=== PATIENT | male | born 1970 | race Two or more races ===

== ENCOUNTER 2018-04-13 23:45 | Inpatient (IN) | payer MEDICARE, MEDICAID ==
[~2018-04-13] VITALS: Ht 190.5 cm; Wt 94.4 kg
[2018-04-14] VITALS (76 sets, daily range): BP systolic 127–203; BP diastolic 66–112
--- NOTE | 2018-04-14 00:45 | NUR ---
ROUTE SALES SPECIALIST NOTES ADMITTED PATIENT TRANSFERED FROM [facility] WHO PRESENTED TO [facility] FROM HOME WITH COMPLAIN OF NAUSEA/VOMITING.HAS HX OF ESRD ON HEMODIALYSIS (M,W,F)WITH RIGHT AV FISTULA. TROPONIN=0.05.K=3.9. WAS GIVEN MORPHINE 4 MG. X 3 DOSES AT [facility] FOR PAIN,ZOFRAN AND REGLAN IVP. ALSO HAD INITIAL ELEVATED BP OF 230/121. PATIENT AWAKE,ALERT,NOT IN ANY DISTRESS BUT STILL WITH MILD TO MODERATE PAIN (ABDOMINAL DISCOMFORT) DENIES ANY CHEST PAIN.COMFORT CARE DONE,NEEDS ATTENDED.FOR HEMODIALYSIS IN AM.
[2018-04-14] MEDS ORDERED: ACETAMINOPHEN 325 MG TABLET PO PRN (01:30)
[2018-04-14] MEDS ORDERED: HYDROCODONE/APAP 5/325MG 1 EACH TABLET PO PRN (01:30)
[2018-04-14] MEDS ORDERED: HYDROMORPHONE INJ 2 MG/ML DISP.SYRIN IV PRN (01:30)
[2018-04-14] MEDS ORDERED: *INSULIN REGULAR(HUMULIN R)HUM 100 UNIT/ML VIAL SQ PRN (01:30)
[2018-04-14] MEDS ORDERED: MAGNESIUM HYDROXIDE 30 ML UDC PO PRN (01:30)
[2018-04-14] MEDS ORDERED: DEXTROSE 50%-WATER 50 ML DISP.SYRIN IV PRN (01:30)
[2018-04-14] MEDS ORDERED: ZOLPIDEM TARTRATE 5 MG TABLET PO PRN (01:30)
[2018-04-14] MEDS ORDERED: NITROGLYCERIN 0.4 MG/TAB BOTTLE SL PRN (01:30)
[2018-04-14] MEDS ORDERED: MAG HYDROX/AL HYDROX/SIMETH 30 ML UDC PO PRN (01:30)
[2018-04-14] MEDS ORDERED: INSULIN REGULAR, HUMAN 100 UNIT/ML 3 ML VIAL SQ PRN (01:30)
[2018-04-14] MEDS ORDERED: hydrALAZINE HCL IV 20 MG VIAL IV PRN (01:30)
[2018-04-14] MEDS ORDERED: ONDANSETRON HCL/PF 4 MG/2 ML VIAL IVP PRN (01:30)
[2018-04-14] MEDS: METOCLOPRAMIDE HCL 10 MG/2 ML VIAL IV SCH ×4 (01:49→19:42)
[2018-04-14 04:46] LABS: BASOPHILS # (AUTO) 0.1 /CMM (0.0-0.2); BASOPHILS % (AUTO) 1.2 % (0.0-2.0); EOSINOPHILS % (AUTO) 2.2 % (0.0-6.0); HEMATOCRIT 29 % (39-51); HEMOGLOBIN 9.7 g/dL (13.5-17.5); LYMPHOCYTES % (AUTO) 28.1 % (20.0-44.0); MEAN CORPUSCULAR HGB CONC 34 g/dl (31.0-36.0); MEAN CORPUSCULAR VOLUME 95 fL (80-96); MONOCYTES % (AUTO) 13.7 % (2.0-12.0); NEUTROPHILS # (AUTO) 3.9 /CMM (1.8-8.9); NEUTROPHILS % (AUTO) 54.8 % (43.0-81.0); PLATELET COUNT (AUTO) 206 /CMM (150-450); RED BLOOD CELL COUNT(AUTO) 3.05 MIL/uL (4.5-6.0); WHITE BLOOD COUNT (AUTO) 7.1 K/uL (4.3-11.0)
[2018-04-14 04:59] LABS: ALBUMIN 2.9 g/dL (3.4-5.0); BILIRUBIN,TOTAL 0.5 mg/dL (0.2-1.0); CALCIUM, SERUM 8.4 mg/dL (8.5-10.1); MAGNESIUM 2.1 mg/dL (1.8-2.4); PHOSPHORUS 4.5 mg/dL (2.5-4.9); POTASSIUM 4.2 mmol/L (3.5-5.1); TOTAL PROTEIN, SERUM 6.9 g/dL (6.4-8.2)
--- NOTE | 2018-04-14 05:00 | NUR ---
CAREER AND TECHNOLOGY EDUCATION TEACHER NOTES BP 203/112, PT CALM,ASLEEP ,ASYMPTOMATIC.CALLED ,ORDERED TO GIVE ANOTHER HYDRALAZINE 10 MG IVP. 0530 EZ=330/97 POST GIVING HYDRALAZINE.
[2018-04-14 05:05] LABS: THYROID STIMULATING HORMONE 4.261 uIU/mL (0.358-3.74)
[2018-04-14] MEDS ORDERED: hydrALAZINE HCL IV 20 MG VIAL IV ONE (05:30)
[2018-04-14 05:50] LABS: CREATININE 7.5 mg/dL (0.6-1.3)
[2018-04-14] MEDS ORDERED: NTG 50 MG/D5W250 ML BOTTL 250 ML IV PRN ×2 (07:30→09:00)
[2018-04-14] MEDS ORDERED: MINO2.5T PO (07:36)
[2018-04-14] MEDS ORDERED: CLON0.1T PO (07:41)
[2018-04-14] MEDS ORDERED: CLOP75TA15 PO (07:41)
[2018-04-14] MEDS ORDERED: ATOR10TA PO (07:41)
[2018-04-14] MEDS ORDERED: SEVE800T8 PO (07:41)
[2018-04-14] MEDS ORDERED: ASPI-1169 PO ×2 (07:41→08:02)
[2018-04-14] MEDS ORDERED: METO-356 PO (07:41)
[2018-04-14] MEDS ORDERED: METO25TA6 PO (08:02)
[2018-04-14] MEDS ORDERED: LISI40TA4 PO (08:02)
[2018-04-14] MEDS ORDERED: NIFE90TA38 PO (08:02)
[2018-04-14] MEDS: ASPIRIN EC 81 MG TABLET.DR PO SCH (08:07)
[2018-04-14] MEDS: PANTOPRAZOLE 40 MG TABLET.DR PO SCH (08:07)
[2018-04-14] MEDS: hydrALAZINE HCL 50 MG TABLET PO SCH ×3 (08:10→17:41)
[2018-04-14] MEDS: BLOOD SUGAR DIAGNOSTIC 1 EACH STRIP VI SCH ×4 (08:22→21:43)
--- NOTE | 2018-04-14 08:23 | NUR ---
WOUND CARE CONSULT: PT REFUSED SKIN ASSESSMENT. WILL SEE PT PT CONDITION PERMITS.
[2018-04-14] MEDS: NICARDIPINE IN DEXTROSE,ISO-OS 200 ML IV PRN ×2 (10:22→21:39)
[2018-04-14] MEDS: METOPROLOL TARTRATE 50 MG TABLET PO SCH ×2 (12:08→17:41)
[2018-04-14] MEDS: SEVELAMER CARBONATE 800 MG TABLET PO SCH ×2 (12:34→17:41)
--- NOTE | 2018-04-14 12:42 | NUR ---
RN NOTE 0720: Received patient awake, sleepy. Verbalizing wanting to go to sleep. A/Ox4, does not want to be bothered, verbalized "I want to sleep.". PIV intact. left arm AV shunt + bruit thrill. 0810: S/E by Dr. Bhatt, with order to keep in ICU and ordered Nitro drip. Still SBP 180's. 0900: Started on Nitro drip. 0930: S/E by Dr. Connell, said to DC Nitro and change to Nicardipine, DC once Nicardipine started. mentioned patient will have HD today. 1240: S/E by José Miguel LEE, spoke with patient and made aware re: the POC. Continued home meds.
[2018-04-14 15:19] LABS: IRON, SERUM 18 ug/dl (50-175); TOTAL IRON BINDING CAPACITY 150 ug/dl (250-450)
[2018-04-14 15:32] LABS: FERRITIN 887 ng/mL (8-388)
[2018-04-14] MEDS ORDERED: ATORVASTATIN 10 MG TABLET PO SCH (18:00)
--- NOTE | 2018-04-14 18:39 | NUR ---
RN NOTE 1700: Done with HD but SBP went to >160 again, will restart Nicardipine and titrate as ordered. Patient is awake now, tried clear liquids and tolerated, wanting to get solid foods, ordered Renal soft diet, patient tolerated.
--- NOTE | 2018-04-14 19:30 | NUR ---
GUEST SERVICE AIDE: RECEIVED PT IN BED WT EYES CLOSED, ABLE TO WAKE UP WHEN CALLED BY NAME AND ORIENTED X 3. ON 2L O2 VIA NC WT NO ACUTE DISTRESS. NO C/O PAIN OR EVIDENCE OF DISCOMFORT. SR ON CUSTOMER ACQUISITION SPECIALIST. ON CARDENE DRIP AT 2MG/HR FOR HIGH BP. WILL TITRATE NEEDED. NO S/S OF IV INFILTRATION. AFEBRILE. LEFT AV SHUNT INTACT WT + BRUIT AND THRILL NOTED. HOB AT 35 DEGREES. SAFETY PRECAUTION NOTED. WILL CONTINUE TO MONITOR.
--- NOTE | 2018-04-14 20:19 | NUR ---
Met with patient,he lives at home with family.He is ambulatory and independent with adl's. Has ESRD,receives hemodialysis MWF @ 4:30pm at [facility] [phone]. Has good family support. Current dc plan is to return home once discharge. Addendum: 04/14/18 at 2024 by VITALIY MCKEON RN Amended: Links added.
[2018-04-15] VITALS (45 sets, daily range): BP systolic 129–174; BP diastolic 58–120
[2018-04-15] MEDS: METOPROLOL TARTRATE 50 MG TABLET PO SCH ×2 (00:33→06:44)
[2018-04-15] MEDS: METOCLOPRAMIDE HCL 10 MG/2 ML VIAL IV SCH ×3 (02:37→13:59)
[2018-04-15] MEDS: NICARDIPINE IN DEXTROSE,ISO-OS 200 ML IV PRN (03:43)
[2018-04-15 05:04] LABS: BASOPHILS # (AUTO) 0.1 /CMM (0.0-0.2); BASOPHILS % (AUTO) 1.2 % (0.0-2.0); EOSINOPHILS % (AUTO) 3.5 % (0.0-6.0); HEMATOCRIT 28 % (39-51); HEMOGLOBIN 9.5 g/dL (13.5-17.5); LYMPHOCYTES # (AUTO) 1.3 /CMM (0.8-4.8); LYMPHOCYTES % (AUTO) 24.6 % (20.0-44.0); MEAN CORPUSCULAR HGB CONC 34 g/dl (31.0-36.0); MEAN CORPUSCULAR VOLUME 96 fL (80-96); MONOCYTES # (AUTO) 0.7 /CMM (0.1-1.30); NEUTROPHILS # (AUTO) 2.9 /CMM (1.8-8.9); NEUTROPHILS % (AUTO) 56.7 % (43.0-81.0); PLATELET COUNT (AUTO) 208 /CMM (150-450); RED BLOOD CELL COUNT(AUTO) 2.96 MIL/uL (4.5-6.0); WHITE BLOOD COUNT (AUTO) 5.1 K/uL (4.3-11.0)
[2018-04-15 05:11] LABS: ALBUMIN 2.8 g/dL (3.4-5.0); BILIRUBIN,TOTAL 0.5 mg/dL (0.2-1.0); CALCIUM, SERUM 8.6 mg/dL (8.5-10.1); CREATININE 6.1 mg/dL (0.6-1.3); MAGNESIUM 2.1 mg/dL (1.8-2.4); POTASSIUM 3.9 mmol/L (3.5-5.1); TOTAL PROTEIN, SERUM 6.9 g/dL (6.4-8.2)
--- NOTE | 2018-04-15 06:50 | NUR ---
STEEL SPAR OPERATOR: REMAINED A/O X 3. STILL ON CARDENE DRIP AT 2.5MG/HR. ON ROOM AIR AND PT DESATURATES TO HIGH 80s WHEN ASLEEP. PT WAS AWAKENED AND 02 SAT GOES BACK TO 94% AND ABOVE. PT REFUSED TO BE PLACED ON 02 VIA NC. ALL NEEDS MET. WILL ENDORSE TO DAY SHIFT FOR CONTINUITY OF CARE.
--- NOTE | 2018-04-15 07:05 | NUR ---
STAMP CLERK: ENDORSED TO DAY SHIFT RN TO HOLD BREAKFAST UNTIL RENAL US IS DONE.
--- NOTE | 2018-04-15 07:31 | NUR ---
INITIAL MOLD MAINTENANCE TECHNICIAN NOTE RCVD PT AWAKE AND ALERT, SHOWING NO S/O DISTRESS PAIN AT THIS TIME. SR ON MONITOR. ON RA TOLERATING WELL WHEN AWAKE REFUSING TO USE O2 VIA NC STATING THAT HE CAN'T TOLERATED AND UNABLE TO GIVE SPECIFICS. PT WAS EDUCATED ON THE IMPORTANCE OF HAVING A GOOD LEVEL OF O2 IN HIS SYSTEM AND INFORMED THAT WHEN HE SLEEPS HIS O2 SATS GO DOWN TO MID-HIGH 80's. PT CONTINUES TO REFUSE. PT AWARE OF THE NEED TO COLLECT STOOL FOR OB AND WILL LET RN KNOW WHEN THIS IS PRODUCED. IV SITE C/D/I/PATENT. NO S/O INFILTRATION/PHLEBITIS OBSERVED UPON FLUSHING. BED IN LOW AND LOCKED POSITION. CALL LIGHT WITHIN REACH.
[2018-04-15] MEDS: PANTOPRAZOLE 40 MG TABLET.DR PO SCH (07:54)
[2018-04-15] MEDS: BLOOD SUGAR DIAGNOSTIC 1 EACH STRIP VI SCH ×2 (07:55→12:09)
[2018-04-15] MEDS: ASPIRIN EC 81 MG TABLET.DR PO SCH (08:01)
[2018-04-15] MEDS: hydrALAZINE HCL 50 MG TABLET PO SCH ×2 (08:01→13:58)
[2018-04-15] MEDS: SEVELAMER CARBONATE 800 MG TABLET PO SCH ×2 (08:55→13:58)
[2018-04-15] MEDS ORDERED: CLOPIDOGREL BISULFATE 75 MG TABLET PO SCH (09:00)
[2018-04-15] MEDS ORDERED: LISINOPRIL (20MG) 20 MG TABLET PO SCH (09:00)
[2018-04-15] MEDS ORDERED: ASPIRIN 81 MG TAB.CHEW PO SCH (09:00)
[2018-04-15] MEDS ORDERED: MINOXIDIL (2.5MG) 2.5 MG TABLET PO SCH ×2 (09:00→10:00)
--- NOTE | 2018-04-15 09:26 | NUR ---
MARKETING DESIGNER NOTE PT UNDERWENT ABDOMINAL AND KIDNEY US, ABLE TO HAVE BREAKFAST.
[2018-04-15] MEDS ORDERED: METOPROLOL TARTRATE 50 MG TABLET PO SCH (09:48)
[2018-04-15] MEDS ORDERED: NIFEdipine XL (30MG) 30 MG TAB PO SCH (09:50)
[2018-04-15] MEDS: CLONIDINE HCL 0.1 MG TABLET PO SCH ×2 (09:54→13:59)
[2018-04-15] MEDS ORDERED: METOPROLOL TARTRATE 50 MG TABLET PO ONE (10:00)
--- NOTE | 2018-04-15 12:46 | NUR ---
TRANSFER [id number] NOTE PT TRANSFERRED TO [facility] VIA BED. REPORT GIVEN TO KENJI JEAN-BAPTISTE. PT'S VITAL SIGNS STABLE, ON RA TOLERATING WELL. IV SITE C/D/I/PATENT. NO S/O INFILTRATION/PHLEBITIS OBSERVED.
--- NOTE | 2018-04-15 15:30 | NUR ---
DISCHARGE INSTRUCTIONS GIVEN ORDERED. ENCOURAGED TO FOLLOW UP WITH PMD INSTRUCTED. ALL QUESTIONS AND CONCERNS ADDRESSED. PATIENT VERBALIZED UNDERSTANDING. MEDICATION RECONCILIATION FORM COMPLETED AND COPY GIVEN TO PATIENT IV REMOVED WITH CATHETER INTACT, PRESSURE DRESSING APPLIED. PATIENT TAKEN TO VEHICLE WITH ALL PERSONAL BELONGINGS, ACCOMPANIED BY STAFF AND FAMILY MEMBER.
[2018-04-15] MEDS ORDERED: FERROUS SULFATE (325 MG) 325 MG/TAB TABLET PO SCH (17:00)
== END 2018-04-15 15:30 | disposition home or self-care (01) | DRG 682 ==
LOC: ICU 04-14 00:34 → MEDSG2 04-15 13:29
PROVIDERS: ADMIT Nurse Practitioner Acute Care; ATTEND Nurse Practitioner Acute Care
PROC: 5A1D70Z Performance of Urinary Filtration, Intermittent, Less than 6 Hours Per Day (ICD-10-PCS; principal; 2018-04-14)
DX: I12.0 Hypertensive chronic kidney disease with stage 5 chronic kidney disease or end stage renal disease (principal); N18.6 End stage renal disease; I16.1 Hypertensive emergency; E44.0 Moderate protein-calorie malnutrition; E11.43 Type 2 diabetes mellitus with diabetic autonomic (poly)neuropathy; Z82.49 Family history of ischemic heart disease and other diseases of the circulatory system; E11.22 Type 2 diabetes mellitus with diabetic chronic kidney disease; E78.5 Hyperlipidemia, unspecified; Z79.82 Long term (current) use of aspirin; Z79.899 Other long term (current) drug therapy; D63.8 Anemia in other chronic diseases classified elsewhere; E11.65 Type 2 diabetes mellitus with hyperglycemia; E66.9 Obesity, unspecified; Z86.73 Personal history of transient ischemic attack (TIA), and cerebral infarction without residual deficits; K31.84 Gastroparesis; M85.9 Disorder of bone density and structure, unspecified
CPT/HCPCS: 36415; 71045-TC; 76705-TC; 80053-TC; 80061-TC; 82728-TC; 82962-TC; 83540-TC; 83690-TC; 83735-TC; 84100-TC; 84439-TC; 84443-TC; 84484-TC; 85025-TC; 90935-TC; 93307-TC; A4606; A6402; G0378; J0360; J1815; J2765; J3490